=== PATIENT | male | born 1970 | race Caucasian/White ===

== ENCOUNTER 2025-07-14 07:01 | Day surgery (SDC) | payer OTHER ==
--- NOTE | 2025-07-07 11:58 | ELECTROCARDIOGRAPH REPORT ---
[facility] Test Date: 2025-07-07 Test Time: 12:56:37 Pat Name: MO KENNY Department: [facility]-PRE-OP Patient ID: [facility]-[id number] Room: Gender: M Geodetic Technician: ANTONINA : 1970 Requested By: KATARINA SMITH Order Number: [id number] Reading MD: Dr. EMILEE Hodge Measurements Intervals Lucile Rate: 49 P: 52 CA: 143 QRS: 82 QRSD: 110 T: 25 QT: 436 QTc: 394 Interpretive Statements Sinus bradycardia Atrial premature complex RSR' in V1 or V2, right VCD or RVH ST elev, probable normal early repol pattern Electronically Signed On 07-07-2025 17:37:[address] EMILEE Hodge Please click the below link to view image of tracing.
[2025-07-07 12:13] LABS: CREATININE 1.19 MG/DL (0.60-1.10); PRE OP ANION GAP 4 (8-16); PRE OP AST 50 U/L (10-37); PRE OP BILIRUB, TOTAL 0.7 MG/DL (0.0-1.0); PRE OP GLUCOSE 94 MG/DL (70-104); PRE OP POTASSIUM 4.1 MMOL/L (3.4-5.1); PRE OP SODIUM 139 MMOL/L (135-145); TOTAL CARBON DIOXIDE 31.4 MMOL/L (24-32); eGFR 64 ML/MIN
[2025-07-07 12:21] LABS: PRE OP ALT 115 U/L (30-65)
[~2025-07-14] VITALS: Ht 177.8 cm; Wt 103.1 kg
[2025-07-14] VITALS (7 sets, daily range): BP systolic 100–130; BP diastolic 64–82; PULSE 54–80; RESP 13–16; TEMP 97.7; O2SAT 96–99
[2025-07-14] MEDS: ceFAZolin 2gm/dext,iso 50mL 50 ML IV ONE (05:30)
[~2025-07-14 07:01] MED LIST: NO HOME MEDS
[2025-07-14] MEDS ORDERED: dexamethasone sod phosphate 4mg/ml inj. IV ONE (07:02)
[2025-07-14] MEDS ORDERED: fentaNYL/PF 50MCG/1 ML 2ML syringe IV PRN ×2 (07:25)
[2025-07-14] MEDS ORDERED: labetalol 20mg/4ml (5mg/ml) syringe IV PRN (07:25)
[2025-07-14] MEDS ORDERED: HYDROmorphone/PF 0.2 MG/ML SYRINGE IV PRN ×2 (07:25)
[2025-07-14] MEDS ORDERED: ondansetron/PF 4mg/2ml inj IV PRN (07:25)
[2025-07-14] MEDS ORDERED: morphine 4 MG/ML inj SYRINge IV PRN (07:25)
[2025-07-14] MEDS ORDERED: ringers solution, lacted 1,000 ML IV SCH (07:25)
[2025-07-14] MEDS ORDERED: enalaprilat 1.25mg/ml 2ml vial IV PRN (07:25)
[2025-07-14] MEDS ORDERED: BUPIVAcaine 2.5mg/ml inj 50ml vial (contains preservative) ONE (08:25)
[2025-07-14] MEDS: ringers solution, lacted 1,000 ML IV SCH (08:25)
[2025-07-14] MEDS ORDERED: LIDOcaine 1% 30ml preserv. free vial ONE (08:25)
[2025-07-14] MEDS ORDERED: fentaNYL/PF 50MCG/1 ML 2ML syringe ONE ×2 (08:36→09:06)
[2025-07-14] MEDS ORDERED: midazolam 1 mg/ML 2ml injection ONE (08:36)
--- NOTE | 2025-07-14 08:50 | HISTORY AND PHYSICAL ---
History & Physical Providers to CC ~ History of Present Illness Reason for Admit\Complaint: Symptomatic umbilical hernia History of Present Illness This is an interval history and physical exam Patient is here today for elective repair of his symptomatic umbilical hernia He was seen in the office quite some time ago with an umbilical hernia that was mildly symptomatic at worse He wished to proceed with watchful waiting, however, over the last year it has increased in size intermittently with intermittent symptoms of significant pain He denies any change in his past medical history since he was seen in the office (please see previous history and physical exam for all pertinent details) He is accompanied this morning by his feliciano and daughter He is scheduled for robotic assisted laparoscopic mesh repair Allergies: Coded Allergies: No Known Allergies (Unverified , 07/13/25) Home Medications Home Medications Active Reported No Home Medications (Home Med List) Each Exam General: 55-year-old male in no acute distress Chest: Lungs are clear to auscultation bilaterally Cardiovascular: Regular rate and rhythm without murmurs Abdomen: Soft and nondistended Partially reducible mass at the superior margin of the umbilicus Fascial defect seems to be about 2 cm by palpation No overlying skin changes Problems: (1) Umbilical hernia Assessment & Plan: The risks, benefits, and alternatives to a robotic assisted, laparoscopic umbilical hernia repair with mesh were discussed with the patient. Risks include, but are not limited to, bleeding, infection, injury to intra- abdominal structures, hernia recurrence and chronic postoperative pain. Patient verbalized understanding and wishes to proceed with surgery. We will do so today as scheduled KATARINA SMITH MD Jul 14, 2025 08:50
[2025-07-14 08:56] LABS: MEAN PLATELET VOLUME 7.8 FL (7.4-10.4); PRE OP HEMATOCRIT 46.2 % (42.0-52.0); PRE OP HEMOGLOBIN 16.0 g/dL (14.0-17.9); PRE OP PLATELET COUNT 185 X10'3 (140-440); PRE OP WHITE BLOOD COUNT 6.9 10'3 (4.8-10.8); RED CELL DISTRIBUTION WIDTH 13.5 % (11.5-14.5)
[2025-07-14] MEDS ORDERED: rocuronium 10mg/ml inj IV ONE (09:06)
[2025-07-14] MEDS ORDERED: BUPIVACAINE liposomal/PF 13.3 MG/ML 10mL vial IM ONE (09:24)
[2025-07-14] MEDS ORDERED: LIDOcaine 2% (20mg/ml) 5ml vial ONE (09:51)
[2025-07-14] MEDS ORDERED: propofol inj 20 ML IV ONE (09:51)
[2025-07-14] MEDS ORDERED: ondansetron/PF 4mg/2ml inj ONE (09:53)
[2025-07-14] MEDS ORDERED: glycopyrrolate 0.2mg/ml inj ONE (09:53)
[2025-07-14] MEDS ORDERED: acetaminophen 1,000mg/100ml IV 100 ML IV ONE (09:54)
[2025-07-14] MEDS ORDERED: oxyCODONE/APAP 5-325mg tablet PO PRN (10:05)
--- NOTE | 2025-07-14 10:13 | OPERATIVE REPORT ---
Operative Report Providers to CC CC: [email or web address] ~ Date of Procedure: Jul 14, 2025 Pre-Operative Diagnosis: Umbilical hernia Post-Operative Diagnosis 2 cm umbilical hernia Procedure Performed Robotic assisted, laparoscopic 2 cm umbilical hernia repair with mesh Bilateral transversus abdominis plane nerve blocks by injection using 266 mg of Exparel Surgeon: Inocente Smith MD FACS [facility] Chief Financial Officer None Anesthesiologist: Blair Rocha Type of Anesthesia: General Findings: 2 cm fascial defect at the level of the umbilicus with the herniated preperitoneal fat Wound class I Complications None Prosthetics\Implants used: 12 cm diameter coated polyester mesh Estimated Blood Loss: Minimal Specimen Removed: None Description of Procedure: Patient was brought to the operating room and identified by the nursing staff and the attending physician. Patient was placed supine and a general anesthesia was induced. Preoperative antibiotics were given. The abdomen was prepped and draped in the standard sterile fashion. Through a left subcostal stab incision the abdomen was accessed with a Veress needle technique. Abdomen was insufflated without incident. The incision was lengthened to accommodate a 12 mm optical trocar and the abdomen was entered under laparoscopic visualization. The abdomen was surveyed laparoscopically. Fascial defect was noted at the level of the umbilicus. No intra-abdominal contents herniated. Under laparoscopic visualization, robotic trochars were placed in the left lateral and left lower quadrant. The [employer] robotic arm was docked to the patient and instruments guided intra-abdominally under laparoscopic visualization. Rent was created near the umbilical defect in the peritoneum which was mobilized toward the midline. The infraumbilical fat pad was mobilized inferiorly and the falciform ligament with the attached herniated preperitoneal fat was mobilized superiorly to allow adequate space for mesh deployment. Fascial defect measured 2 cm in diameter. Fascial defect(s) were then reapproximated with running, long, 180 day absorbable, 0V lock suture. Good fascial apposition was obtained without significant tension. A coated polyester mesh was then fixed to the anterior abdominal wall with running, absorbable, 2/0, V lock suture. Mesh laid without wrinkles or folds. The mesh measured 12 cm in diameter. The [employer] instruments were then removed and the robot undocked from the patient. Bilateral transversus abdominis plane nerve blocks by injection were then placed under laparoscopic visualization using a combination of Marcaine and Exparel. The left subcostal trocar was removed and its fascia closed percutaneously with 0 Vicryl suture under laparoscopic visualization. Remaining trochars were removed after the abdomen was allowed to deflate. Skin was closed at all sites with 4-0 Monocryl sutures and dressed with sterile dressings. Patient was awakened and taken to the postanesthesia care unit in stable condition. Counts repoted as correct: Yes INOCENTE SMITH MD Jul 14, 2025 10:13
== END 2025-07-14 11:00 | disposition home or self-care (01) ==
LOC: PAS 07:01
PROVIDERS: ATTEND Surgery
DX: K42.9 Umbilical hernia without obstruction or gangrene (principal); G89.18 Other acute postprocedural pain; I49.1 Atrial premature depolarization; I10 Essential (primary) hypertension; E66.9 Obesity, unspecified; Z98.890 Other specified postprocedural states; Z68.32 Body mass index [BMI] 32.0-32.9, adult; Z80.7 Family history of other malignant neoplasms of lymphoid, hematopoietic and related tissues
CPT/HCPCS: 36415; 49591; 64488; 80053; 82948; 85025; 93005; C1781; J0131; J0666; J1100; J2003; J2250; J2312; J2405; J2704; J2710; J3010; J3490; J7030; J7120; Z7506; Z7508; Z7512; A4215; A4618